=== PATIENT | female | born 1985 | race Caucasian/White ===

== ENCOUNTER 2023-04-21 01:32 | Day surgery (SDC) | payer OTHER, SELFPAY ==
[2023-04-21] VITALS (8 sets, daily range): BP systolic 110–147; BP diastolic 70–88; PULSE 61–93; RESP 15–17; TEMP 36.5–36.9; O2SAT 100; BMI 26.2; BMI 25.1
[2023-04-21] MEDS: LACTATED RINGERS 1,000 ML 30 ML IV CONT ×2 (11:58→14:02)
--- NOTE | 2023-04-21 12:06 | WPDHPUPDATE1 ---
History and Physical Update Update Date/Time: 04/21/23 12:06 History and Physical has been reviewed, including an updated exam of the patient. There are NO changes in the patient's condition. Risks, benefits, and alternatives have been discussed and questions answered. Patient agrees to proceed with procedure.
--- NOTE | 2023-04-21 12:06 | W.PM.PROC2 ---
Procedure Note - Detailed Date of Procedure 04/21/23 Pre-op Diagnosis History of breast implants Post-op Diagnosis Same Procedure Performed Bilateral implant removal with capsulectomy Surgeon Moody May MD Anesthesia General Findings Bilateral smooth implants Bilateral implant rupture No seroma, masses, or other worrisome features Majority of bilateral capsules removed Description of Procedure She is here for the above procedure. Preoperatively risks, benefits, alternatives were discussed in extensive detail. Want her to be very realistic about risks involved as well as expectations. We discussed options or drains with the procedure including all her options. Made sure answered everyone of her questions to her satisfaction again today. She voiced clear understanding. Consent was obtained. She was taken to the operating room placed supine on the operating room table. Anesthesia provided by anesthesiology. She was prepped and draped in the standard sterile fashion. Surgical time-out was. 1% lidocaine and 0.25% Marcaine with epinephrine was used to provide a field block. Fifteen blade used to excise along previous scar. Dissection was continued down to the capsules identified it is an elevated above the capsule for majority of the capsule. At this point the implant and the capsule were removed. Capsule sent to pathology. I copiously irrigated with 3 L of saline solution on TUR tubing. Verified strict hemostasis. I closed with 2-0 Vicryl followed by 3-0 Stratafix in running subcuticular 4-0 Monocryl and tissue glue. Dressings and a surgical bra were placed. She tolerated the procedure well. Estimated Blood Loss 100 Drains No Packing No Pathology Yes (bilateral breast implant capsules) Complications No immediate complications Condition Stable Disposition PACU
[2023-04-21 12:08] LABS: Hematocrit 38.5 % (37.0-47.0)
--- NOTE | 2023-04-21 12:17 | P.PNAN_ITS ---
Anes - Initial Pre Proc Eval Procedure: Operation Date: 04/21/23 12:30 Proposed Procedures p Removal Bilateral Breast Implants - Moody May MD Date/Time: 04/21/23 12:17 Surgeon: Moody May MD Pre Op Diagnosis: History of breast implants Patient Data Age: 37 Gender: F Height: 1.6 m Weight: 67.2 kg Allergies Allergy/AdvReac Type Severity Reaction Status Date / Time No Known Allergies Allergy Verified 04/21/23 08:16 Home Medications Medication Instructions Recorded Confirmed Type Adults Multivitamin 1 tab-cap PO DAILY 04/21/23 04/21/23 History Vitron-C 65 - 125 mg PO DAILY 04/21/23 04/21/23 History levothyroxine 112 mcg tablet 112 mcg PO DAILY 04/21/23 04/21/23 History paroxetine HCl 20 mg tablet 20 mg PO HS 04/21/23 04/21/23 History sulfasalazine 500 mg tablet 500 mg PO DAILY 04/21/23 04/21/23 History Laboratory Tests 04/21/23 12:00 Hgb 12.0 g/dL (12.0-15.0) Hct 38.5 % (37.0-47.0) Patient hx anesthesia problems: none Family hx anesthesia problems: none Results Review: All pre-operative results and documents have been reviewed as part of the pre- operative evaluation. [facility] Social History Social History Living arrangements: with family Anes - Eval Final PreProcedure Day of Procedure 04/21/23 12:17 Patient weight: overweight Heart: regular rate and rhythm Lungs: clear to auscultation Airway: Mallampati scale class II Neurological: alert and oriented Last oral intake: >/= 8 hours ASA classification: III Emergent: no Anesthetic plan: proceed Anesthesia type and monitoring: general LMA and standard monitoring Results Review: All pre-operative results and documents have been reviewed as part of the pre- operative evaluation. Informed Consent: The patient's anesthetic plan and its attendant risks and benefits were discussed with the patient/family/POA. Questions were solicited and answers provided to the satisfaction of the patient/family/POA.
[2023-04-21] MEDS: TRANEXAMIC ACID 1,000MG/ISO100 1,000 MG/100 ML BAG 200 MG IVPB (12:37)
[2023-04-21] MEDS: BUPivacaine HCL 0.25% PF 30 ML VIAL INFILTRATE (12:37)
[2023-04-21] MEDS: ceFAZolin 2 GM/D5W 50 ML 2 GM/50 ML BAG IVPB (12:37)
[2023-04-21] MEDS: LIDO 1%/EPINEPHRINE 1:100,000 50 ML VIAL 30 ML INFILTRATE (12:37)
[2023-04-21] MEDS: fentaNYL CITRATE INJ (*CRX) 100 MCG/2 ML VIAL 25 MCG IV PUSH ×3 (14:13→14:38)
[2023-04-21] MEDS: oxyCODONE HCL (*CRX) 5 MG TAB IR PO (15:19)
== END 2023-04-21 15:50 | disposition home or self-care (01) ==
PROVIDERS: Anesthesiology; Visit Provider Surgery Plastic and Reconstructive Surgery
PROC: 0HPT0JZ Removal of Synthetic Substitute from Right Breast, Open Approach (ICD-10-PCS; CPT 19371; principal; 2023-04-21 12:30)
DX: T85.41XA Breakdown (mechanical) of breast prosthesis and implant, initial encounter (principal); Y83.8 Other surgical procedures as the cause of abnormal reaction of the patient, or of later complication, without mention of misadventure at the time of the procedure; E06.3 Autoimmune thyroiditis
CPT/HCPCS: 19371; 36415; 85014; 85018; 88304; A9270; J0690; J1100; J1170; J2250; J2405; J2704; J3010; J7120